=== PATIENT | female | born 1955 | race Caucasian/White ===

== ENCOUNTER 2016-07-06 17:10 | Emergency (ER) | payer BC ==
[2016-07-06 19:43] LABS: HEMOGLOBIN 13.5 gm/dl (12.3-15.3); RED BLOOD COUNT 4.64 M/UL (4.00-5.10); WHITE BLOOD COUNT 6.5 K/UL (4.5-11.0)
[2016-07-06 20:07] LABS: BUN/CREATININE RATIO 16 (0-10)
== END 2016-07-06 21:46 | disposition home or self-care (01) ==
LOC: ER1 17:10
PROVIDERS: Family Medicine
DX: R00.2 Palpitations (principal); R42 Dizziness and giddiness
CPT/HCPCS: 36415; 71010; 80053; 82550; 82553; 83874; 83880; 84443; 84484; 85025; 85379; 85610; 85730; 93005; 99285